=== PATIENT | male | born 1975 | race African-American/Black ===

== ENCOUNTER 2018-10-13 03:54 | Emergency (ER) | payer SELFPAY ==
[~2018-10-13] VITALS: Ht 175.3 cm; Wt 84.5 kg
[2018-10-13 03:59] VITALS: Ht 175.3 cm; Wt 84.5 kg
[2018-10-13] MEDS ORDERED: IBUPROFEN600 MG PO (04:18)
[2018-10-13 04:38] VITALS: BP 148/85
== END 2018-10-13 04:38 | disposition home or self-care (01) ==
LOC: D.ER 03:54
DX: M54.40 Lumbago with sciatica, unspecified side (principal)

== ENCOUNTER 2020-12-09 11:44 | Emergency (ER) | payer MEDICARE ==
[2018-10-13 03:59] VITALS: Ht 175.3 cm; Wt 83.2 kg
[~2020-12-09] VITALS: Ht 175.3 cm; Wt 83.2 kg
[~2020-12-09 11:44] MED LIST: IBUPROFEN600 MG PO
[2020-12-09 11:47] VITALS: BP 120/69
[2020-12-09] MEDS ORDERED: PREDNISONE20 MG PO (12:11)
== END 2020-12-09 12:23 | disposition home or self-care (01) ==
LOC: D.ER 11:44
DX: M54.5 Low back pain (principal); G89.29 Other chronic pain